=== PATIENT | male | born 1970 | race Caucasian/White ===

== ENCOUNTER 2019-06-16 15:51 | Emergency (ER) | payer OTHER ==
--- NOTE | 2019-06-16 16:15 | EDM.PDOC ---
ED HPI GENERAL MEDICAL PROBLEM - General Chief Complaint: Abdominal Pain Stated Complaint: FEVER/ABD PAIN Time Seen by Provider: 06/16/19 16:07 - History of Present Illness INITIAL COMMENTS - FREE TEXT/NARRATIVE: 48-year-old male presents emergency room with abdominal pain. This pain started about 3 days ago. It really got worse yesterday and last night. It kept him up most the night. Last night he had some nausea with it he' s been chilled at times and felt warm. He thought he was feverish but this was not checked with a thermometer. Patient went to the foot walking this afternoon and couldn't stand it any longer. He felt warm. He's not had any diarrhea or constipation no vomiting mild nausea last night. He has no prior history of any abdominal surgeries. He enjoys good health. Lower Abdomen Pain Score (Numeric/FACES): 4 - Related Data Allergies Allergy/AdvReac Type Severity Reaction Status Date / Time No Known Allergies Allergy Verified 06/16/19 15:56 Home Meds: Home Meds Acetaminophen/HYDROcodone [[place] 325-5 MG] 1 tab PO Q4H PRN #8 tablet 06/16/19 [ Rx] Ondansetron [Zofran ODT] 4 - 8 mg PO Q6H PRN #10 tab.dis 06/16/19 [Rx] Past Medical History - Past Health History Medical/Surgical History: Denies Medical/Surgical History Social & Family History - Tobacco Use Smoking Status *Q: Never Smoker - Recreational Drug Use Recreational Drug Use: No ED ROS GENERAL - Review of Systems Review Of Systems: See Below Constitutional: Reports: Fever, Other (His fevers have been subjective) HEENT: Reports: No Symptoms Respiratory: Reports: No Symptoms Cardiovascular: Reports: No Symptoms Endocrine: Reports: No Symptoms GI/Abdominal: Reports: Abdominal Pain, Anorexia. Denies: Constipation, Diarrhea , Nausea, Vomiting : Reports: No Symptoms Musculoskeletal: Reports: No Symptoms Skin: Reports: No Symptoms Neurological: Reports: No Symptoms ED EXAM, GI/ABD - Physical Exam Exam: See Below Exam Limited By: No Limitations General Appearance: Alert, No Apparent Distress Head: Atraumatic, Normocephalic Neck: Normal Inspection, Supple, Non-Tender, Full Range of Motion. No: Lymphadenopathy (L), Lymphadenopathy (R) Respiratory/Chest: No Respiratory Distress, Lungs Clear, Normal Breath Sounds Cardiovascular: Regular Rate, Rhythm, No Edema, No Murmur GI/Abdominal Exam: Normal Bowel Sounds, Soft, Other (He has bilateral lower quadrant discomfort no suprapubic discomfort no rigidity noted rebound or guarding noted) Back Exam: Normal Inspection. No: CVA Tenderness (L), CVA Tenderness (R) Extremities: Normal Inspection, No Pedal Edema Course - Vital Signs Last Recorded V/S: Last Vital Signs Temp 37.1 C 06/16/19 15:56 Pulse 76 06/16/19 15:56 Resp 17 06/16/19 15:56 BP 134/85 06/16/19 15:56 Pulse Ox 98 06/16/19 15:56 - Orders/Labs/Meds Orders: Active Orders 24 hr Category Date Time Status Abdomen 2V AP Flat Upright [CR] Stat Exams 06/16/19 16:15 Taken Labs: Laboratory Tests 06/16/19 06/16/19 06/16/19 Range/Units 16:21 16:30 16:30 WBC 10.67 H (4.23-9.07) K/mm3 RBC 5.36 (4.63-6.08) M/mm3 Hgb 15.1 (13.7-17.5) gm/dl Hct 44.7 (40.1-51.0) % MCV 83.4 (79.0-92.2) fl MCH 28.2 (25.7-32.2) pg MCHC 33.8 (32.2-35.5) g/dl RDW Std Deviation 38.6 (35.1-43.9) fL Plt Count 217 (163-337) K/mm3 MPV 10.1 (9.4-12.3) fl Neutrophils % (Manual) 90 H (40-60) % Band Neutrophils % 0 (0-10) % Lymphocytes % (Manual) 9 L (20-40) % Atypical Lymphs % 0 % Monocytes % (Manual) 1 L (2-10) % Eosinophils % (Manual) 0 L (0.8-7.0) % Basophils % (Manual) 0 L (0.2-1.2) Platelet Estimate Adequate RBC Morph Comment Normal Sodium 142 (136-145) mEq/L Potassium 3.8 (3.5-5.1) mEq/L Chloride 104 (98-107) mEq/L Carbon Dioxide 27 (21-32) mEq/L Anion Gap 14.8 (5-15) BUN 14 (7-18) mg/dL Creatinine 1.1 (0.7-1.3) mg/dL Est Cr Clr Drug Dosing 82.95 mL/min Estimated GFR (MDRD) > 60 (>60) mL/min BUN/Creatinine Ratio 12.7 L (14-18) Glucose 93 (74-106) mg/dL Calcium 8.9 (8.5-10.1) mg/dL Total Bilirubin 0.7 (0.2-1.0) mg/dL AST 30 (15-37) U/L ALT 55 (16-63) U/L Alkaline Phosphatase 96 (46-116) U/L Total Protein 8.3 H (6.4-8.2) g/dl Albumin 4.3 (3.4-5.0) g/dl Globulin 4.0 gm/dL Albumin/Globulin Ratio 1.1 (1-2) Lipase 65 L (73-393) U/L Urine Color Light yellow (Yellow) Urine Appearance Clear (Clear) Urine pH 6.0 (5.0-8.0) Ur Specific [place] 1.015 (1.005-1.030) Urine Protein Negative (Negative) Urine Glucose (UA) Negative (Negative) Urine Ketones Negative (Negative) Urine Occult Blood Negative (Negative) Urine Nitrite Negative (Negative) Urine Bilirubin Negative (Negative) Urine Urobilinogen 0.2 (0.2-1.0) Ur Leukocyte Esterase Negative (Negative) Urine RBC 0-5 (0-5) /hpf Urine WBC 0-5 (0-5) /hpf Ur Epithelial Cells 0-5 (0-5) /hpf Urine Bacteria Not seen (FEW) /hpf Urine Mucus Not seen (FEW) /hpf - Re-Assessments/Exams Free Text/Narrative Re-Assessment/Exam: 06/16/19 17:43 Patient has done well her the emergency room his pain subsided a little bit he is able eat some rest. Without receiving any medications for pain control. Laboratory evaluation is nonrevealing his white counts up just a little bit with 90% segs no bandemia. His creatinine is up just a little bit at 1.1. Lipase is normal urinalysis is not suggestive of infectious process x-rays of the abdomen are essentially normal. Discussed a couple options these nice people do live in [place]. Option 1 is [id number] clear liquid diet mild pain control and something for nausea recheck in 12-24 hours if not better sooner if getting worse. Option to is preceded CAT scan and the patient and his and myself that come to the conclusion it's best to wait and watch and avoid the CAT scan at this point. There is a small chance we could miss a appendicitis here, but everybody thinks a little close observation is probably the best plan at this point I agree. Departure - Departure Time of Disposition: 17:47 Disposition: Home, Self-Care 01 Clinical Impression: Abdominal pain of unknown etiology - Discharge Information Prescriptions: Acetaminophen/HYDROcodone [[place] 325-5 MG] 1 tab PO Q4H PRN #8 tablet PRN Reason: Abdominal Pain Ondansetron [Zofran ODT] 4 - 8 mg PO Q6H PRN #10 tab.dis PRN Reason: Nausea/Vomiting Referrals: Marleen Chandler PA [Primary Care Provider] - Forms: ED Department Discharge Additional Instructions: Return to the emergency room with any questions problems or worsening symptoms. Return to the emergency room in 12-24 hours if not better, sooner if getting worse. Use the Zofran one or 2 tablets every 6 hours as needed for nausea. Use the hydrocodone one every 6 hours as needed for pain. - My Orders Last 24 Hours: My Active Orders 06/16/19 16:15 Abdomen 2V AP Flat Upright [CR] Stat - Assessment/Plan Last 24 Hours: My Active Orders 06/16/19 16:15 Abdomen 2V AP Flat Upright [CR] Stat
--- NOTE | 2019-06-17 16:01 | CR ---
Abdomen: Supine and upright views of the abdomen were obtained. Comparison: No prior abdominal x-ray. Calcifications are noted within the pelvis which are compatible with phleboliths. Bowel gas pattern is normal. No soft tissue abnormality is seen. Slight degenerative change is scattered within the spine. No free air is identified. Impression: 1. Nothing acute is appreciated on two-view abdominal x-ray. Diagnostic code #2
== END 2019-06-16 18:02 | disposition home or self-care (01) ==
LOC: EDSEX 15:51 → JD.ED 15:51
DX: R10.31 Right lower quadrant pain (principal); R10.32 Left lower quadrant pain
CPT/HCPCS: 36415; 74019; 74019-26; 80053; 81001; 83690; 85007; 85027; 99283; 99284-25